=== PATIENT | female | born 1985 | race Asian ===

== ENCOUNTER 2018-01-05 02:55 | Inpatient (IN) | payer SELFPAY ==
[~2018-01-05] VITALS: Ht 169 cm; Wt 71.2 kg
[~2018-01-05 02:55] MED LIST: [UNRECOGNIZED DRUG - CODE] PO
[2018-01-11] MEDS ORDERED: LACTATED RINGERS 1,000 ML IV SCH (03:27)
[2018-01-11] MEDS ORDERED: NALBUPHINE HYDROCHLORIDE 10 MG/ML VIAL IVP PRN (03:30)
[2018-01-11] MEDS ORDERED: PROMETHAZINE 25 MG/ML VIAL IVP PRN (03:30)
[2018-01-11] MEDS ORDERED: OXYTOCIN 10 UNITS/ML VIAL IM SCH (03:30)
[2018-01-11] MEDS ORDERED: METHYLERGONOVINE 0.2 MG/ML AMP IM PRN ×2 (03:30→17:15)
[2018-01-11] MEDS ORDERED: CARBOPROST 250 MCG/ML AMP IM PRN (03:30)
[2018-01-11] MEDS ORDERED: MISOPROSTOL 25 MCG TAB VG PRN (03:35)
[2018-01-11] MEDS ORDERED: MISOPROSTOL 25 MCG TAB ONE (04:23)
[2018-01-11 04:27] LABS: BASOPHILS # (AUTO) 0.1 K/uL (0.00-0.22); BASOPHILS % (AUTO) 0.7 % (0.0-2.0); EOSINOPHILS # (AUTO) 0.2 K/uL (0-0.4); EOSINOPHILS % (AUTO) 2.1 % (0.0-4.0); HEMOGLOBIN 12.4 g/dL (12.0-16.0); LYMPHOCYTES # (AUTO) 1.6 K/uL (2.5-16.5); LYMPHOCYTES % (AUTO) 20.7 % (20.5-51.1); MEAN CORPUSCULAR HEMOGLOBIN 32 pg (27-31); MEAN CORPUSCULAR HGB CONC 33 g/dL (33-37); MEAN CORPUSCULAR VOLUME 97.3 fL (80-94); MONOCYTES # (AUTO) 0.7 K/uL (0.8-1.0); NEUTROPHILS # (AUTO) 5.2 K/uL (1.8-7.7); NEUTROPHILS % (AUTO) 67.5 % (42.2-75.2); PLATELET COUNT (AUTO) 135 K/uL (140-450); RED BLOOD CELL COUNT(AUTO) 3.91 MIL/uL (4.20-5.40); RED CELL DISTRIBUTION WIDTH 13.5 % (11.6-13.7); WHITE BLOOD COUNT (AUTO) 7.8 K/uL (4.8-10.8)
[2018-01-11 04:27] LABS: APPEARANCE,URINE CLEAR (CLEAR); BILIRUBIN,URINE NEGATIVE (NEGATIVE); BLOOD, URINE TRACE-L (NEGATIVE); COLOR,URINE YELLOW (YELLOW); LEUKOCYTE ESTERASE ,URINE NEGATIVE (NEGATIVE); NITRITE, URINE NEGATIVE (NEGATIVE); PH,URINE 7.5 (5.0-9.0); UGLUCOSE NEGATIVE (NEGATIVE)
[2018-01-11 04:40] LABS: RBC,URINE 0-5 (RARE) /HPF (0-5); WBC,URINE 0-5 (RARE) /HPF (0-5)
[2018-01-11 04:41] LABS: ANION GAP 14.1 (8-16); CARBON DIOXIDE 25.5 mmol/L (21-32); CREATININE 0.5 mg/dL (0.6-1.3); POTASSIUM 3.6 mmol/L (3.5-5.1)
[2018-01-11 04:46] LABS: ALBUMIN 2.9 g/dL (3.4-5.0); TOTAL BILIRUBIN 0.2 mg/dL (0.0-1.0)
[2018-01-11 07:15] VITALS: BP 114/76
[2018-01-11] MEDS ORDERED: BUPIVACAINE 0.125%/NS PREMIX 250 ML EPI STA (07:18)
[2018-01-11] MEDS ORDERED: OXYTOCIN 20 UNITS in LACTATED RINGERS 1,000 ML IV SCH (08:46)
[2018-01-11 09:01] LABS: RAPID PLASMA REAGIN NON-REACTIVE (Non Reactiv)
[2018-01-11] MEDS ORDERED: BUPIVACAINE 0.125%/NS PREMIX 250 ML EPI SCH (09:10)
--- NOTE | 2018-01-11 09:11 | NUR ---
PATIENT HAS BEEN SCREENED AND CATEGORIZED LOW NUTRITION RISK. PATIENT WILL BE SEEN WITHIN 7 DAYS OF ADMISSION. 01/17/[address]
[2018-01-11] MEDS ORDERED: NALBUPHINE 10 MG/ML AMP ONE (11:31)
[2018-01-11] MEDS ORDERED: OXYTOCIN 10 UNITS/ML VIAL ONE (11:43)
[2018-01-11] MEDS ORDERED: oxyCODONE/APAP 5/325 MG 1 TAB TAB PO PRN (17:15)
[2018-01-11] MEDS ORDERED: HYDROcodone/APAP 5/325 MG 1 TAB TAB PO PRN (17:15)
[2018-01-11] MEDS ORDERED: BENZOCAINE/MENTHOL 20%-0.5% 60 GM CAN TP PRN (17:15)
[2018-01-11] MEDS ORDERED: MEASLES, MUMPS, AND RUBELLA 1 VIAL SQVAC PRN (17:15)
[2018-01-11] MEDS ORDERED: TEMAZEPAM 15 MG CAP PO PRN (17:15)
[2018-01-11] MEDS ORDERED: OXYTOCIN 10 UNITS/ML VIAL IM PRN (17:15)
[2018-01-11] MEDS ORDERED: IBUPROFEN 800 MG TAB PO PRN (17:15)
[2018-01-11] MEDS ORDERED: DOCUSATE SOD/SENNA 50/8.6 MG 1 TAB PO SCH (21:00)
[2018-01-12] MEDS: BETHANECHOL 25 MG TAB PO PRN ×2 (01:14→09:04)
[2018-01-12 06:31] LABS: HEMATOCRIT 31.6 % (36-48); HEMOGLOBIN 10.5 g/dL (12.0-16.0)
[2018-01-13] MEDS ORDERED: IBUP-1842 PO (08:44)
== END 2018-01-13 20:30 | disposition home or self-care (01) | DRG 775 ==
LOC: MLD 01-11 02:50 → MFCC 01-11 04:30
PROVIDERS: ADMIT Obstetrics & Gynecology; ATTEND Obstetrics & Gynecology
PROC: 10E0XZZ Delivery of Products of Conception, External Approach (ICD-10-PCS; principal; 2018-01-11)
PROC: 0KQM0ZZ Repair Perineum Muscle, Open Approach (ICD-10-PCS; 2018-01-11)
PROC: 10907ZC Drainage of Amniotic Fluid, Therapeutic from Products of Conception, Via Natural or Artificial Opening (ICD-10-PCS; 2018-01-11)
PROC: 00HU33Z Insertion of Infusion Device into Spinal Canal, Percutaneous Approach (ICD-10-PCS; 2018-01-11)
PROC: 3E0R3BZ Introduction of Anesthetic Agent into Spinal Canal, Percutaneous Approach (ICD-10-PCS; 2018-01-11)
PROC: 3E0234Z Introduction of Serum, Toxoid and Vaccine into Muscle, Percutaneous Approach (ICD-10-PCS; 2018-01-11)
DX: O69.81X0 Labor and delivery complicated by cord around neck, without compression, not applicable or unspecified (principal); O70.1 Second degree perineal laceration during delivery; Z37.0 Single live birth; Z3A.39 39 weeks gestation of pregnancy; Z23 Encounter for immunization
CPT/HCPCS: 36415; 80053; 81001; 85018; 85025; 86592; 86886; 86900; 86901; 90707; 90715; C1758; J2300; J2590; J3490; J7120